=== PATIENT | female | born 1990 | race American Indian/Alaskan Native ===

== ENCOUNTER 2017-12-01 14:07 | Emergency (ER) | payer MEDICAID ==
[2017-12-01 14:41] VITALS: BP 120/81; PULSE 79; RESP 20; TEMP 99.3; O2SAT 98
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
--- NOTE | 2017-12-01 15:40 | RAD ---
Date of service: 12/01/2017 PROCEDURE: Right Foot Radiographs. HISTORY: pain and swelling, attn 5th toe COMPARISON: None. FINDINGS: BONES: No acute fracture. JOINTS: Normal. SOFT TISSUES: Normal. OTHER FINDINGS: None. IMPRESSION: No demonstrated fracture or dislocation.
== END 2017-12-01 15:14 | disposition home or self-care (01) ==
LOC: C.ER 14:07
DX: L03.115 Cellulitis of right lower limb (principal); M79.671 Pain in right foot